=== PATIENT | female | born 1945 | race Caucasian/White ===

== ENCOUNTER 2019-04-04 06:48 | Emergency (ER) | payer OTHER ==
[~2019-04-04] VITALS: Ht 167.6 cm; Wt 59.0 kg
[2019-04-04] MEDS ORDERED: ZPAK PO (09:10)
[2019-04-04 09:17] VITALS: BP 174/69
[2019-04-05] MEDS ORDERED: PROAIR HFA8.5 GM INH (01:41)
[2019-04-05] MEDS ORDERED: PREDNISONE 20 M20 M1 PO (01:41)
[2019-04-05] MEDS ORDERED: NORVASC 2.5 MG2.5 M1 PO (19:43)
[2019-04-05] MEDS ORDERED: BUPROPION XL300 MG PO (19:44)
[2019-04-05] MEDS ORDERED: CARDURA4 MG PO (19:45)
[2019-04-05] MEDS ORDERED: LEXAPRO 10 MG T10 M1 PO (19:46)
[2019-04-05] MEDS ORDERED: HYDROCHLOROTHIA25 M2 PO (19:47)
[2019-04-05] MEDS ORDERED: IRBESARTAN300 MG PO (19:48)
[2019-04-05] MEDS ORDERED: BYSTOLIC10 MG PO (19:48)
[2019-04-05] MEDS ORDERED: CLINDAMYCIN HC300 MG PO (19:49)
== END 2019-04-04 09:24 | disposition home or self-care (01) ==
LOC: ER 06:48
DX: J06.9 Acute upper respiratory infection, unspecified (principal); R04.0 Epistaxis

== ENCOUNTER 2019-04-05 00:03 | Inpatient (IN) | payer OTHER ==
[2019-04-05] VITALS (7 sets, daily range): BP systolic 136–161; BP diastolic 74–91
[~2019-04-05] VITALS: Ht 165.1 cm; Wt 66.2 kg
[~2019-04-05 00:03] MED LIST: ZPAK PO
[2019-04-05 00:29] LABS: HEMOGLOBIN 12.2 gm/dL (12.0-15.0); MCH 34.5 pg (26.0-34.0); MCHC 33.8 g/dL (28.0-37.0); MCV 102.1 fL (80.0-100.0); PLATELET COUNT 305 thou/uL (150-400); RBC 3.53 mil/uL (4.20-5.00); RDW 14.1 % (10.5-14.5); WBC 6.6 thou/uL (4.0-11.0)
[2019-04-05 00:31] LABS: ANION GAP 10 mmol/L (7-16); BUN 7 mg/dL (7-18); CALCIUM 8.7 mg/dL (8.5-10.1); CHLORIDE 87 mmol/L (98-107); CO2 25 mmol/L (21-32); CREATININE 0.6 mg/dL (0.6-1.0); GLUCOSE 105 mg/dL (74-106); POTASSIUM 3.8 mmol/L (3.5-5.1); SODIUM 122 mmol/L (136-145)
[2019-04-05 00:39] LABS: TROPONIN-I <0.06 ng/mL (<0.06)
[2019-04-05 01:07] LABS: ATYPICAL LYMPHS 3 %; LARGE PLATELETS RARE
[2019-04-05] MEDS ORDERED: PREDNISONE 20 M20 M1 PO (01:41)
[2019-04-05] MEDS ORDERED: PROAIR HFA8.5 GM INH (01:41)
--- NOTE | 2019-04-05 03:35 | NUR ---
ASSUMED CARE OF PT FROM ER AT 0240HRS. PT IS ALERT BUT ONLY ORIENTED TO PERSON. FALL PRECAUTION IN PLACE. PT DID NOT ARRIVE WITH FAMILY AND THUS, HISTORY IS VERY LIMITED. ER WAS UNABLE TO GET CONTACT FAMILY. DUE TO COGNITION, PT IS UNABLE TO SIGN CONSENTS. ASSESSMENTS CHARTED. ORDERS RECEIVED AND STARTED. PT COMPLAINS OF SOME SOA BUT DENIES PAIN OR NAUSEA. VSS AND NO S/S OF ACUTE DISTRESS. WILL CONTINUE TO MONITOR.
[2019-04-05 03:36] LABS: FOLIC ACID 4.2 ng/mL (8.6-58.9); TSH 4.815 uIU/mL (0.358-3.740)
--- NOTE | 2019-04-05 16:20 | 2DMMODE ---
[facility] [address] [place] [address] 2 D/M-MODE ECHOCARDIOGRAM Name: ALEKS GUEVARA Room #: 354-P ADM IN M.R.#: [id number] Admission: 04/05/19 Attend Phys: Hayley Croft MD Discharge: Date of : 43 Report #: [id number] THIS REPORT FOR: cc: [facility] - Clinic physician unknown [facility] - Clinic physician unknown Oneil Deshpande MD ~ APPROVED REPORT Study performed: 04/05/2019 15:28:57 EXAM: Comprehensive 2D, Doppler, and color-flow Echocardiogram Patient Location: Bedside Room #: 354 Status: routine BSA: 1.73 HR: 65 bpm BP: 140/85 mmHg Rhythm: NSR Other Information Study Quality: Good Indications COPD Dyspnea Hypertension/HDD 2D Dimensions RVDd: 29.83 mm IVSd: 6.75 (7-11mm) LVOT Diam: 19.42 (18-24mm) LVDd: 46.73 mm PWd: 9.29 (7-11mm) Ascending Ao: 32.40 (22-36mm) LVDs: 33.34 (25-40mm) Aortic Root: 30.35 mm IVC: 26.00 mm Volumes Left Atrial Volume (Systole) Single Plane 4CH: 46.08 mL Single Plane 2CH: 36.68 mL LA ESV Index: 28.00 mL/m2 Aortic Valve AoV Peak Anup.: 1.74 m/s AO Peak Gr.: 12.16 mmHg LVOT Max P.32 mmHg LVOT Max V: 1.15 m/s [facility] [address] [place] [address] 2 D/M-MODE ECHOCARDIOGRAM Name: ALEKS GUEVARA Room #: 354-P [facility] IN ..#: [id number] Admission: 04/05/19 Attend Phys: Hayley Croft, Discharge: Date of : 43 Report #: [id number] SAMANTA Vmax: 1.96 cm2 Mitral Valve E/A Ratio: 2.1 MV Decel. Time: 179.38 ms MV E Max Anup.: 1.43 m/s MV A Anup.: 0.68 m/s MV PHT: 52.02 ms IVRT: 64.59 ms Pulmonary Valve PV Peak Anup.: 0.88 m/s PV Peak Gr.: 3.08 mmHg Pulmonary Vein P Vein S: 1.00 m/s P Vein A: 0.24 m/s P Vein D: 0.36 m/s P Vein A Dur.: 96.9 msec P Vein S/D Ratio: 2.78 Tricuspid Valve TR Peak Anup.: 3.12 m/s TR Peak Gr.: 38.88 mmHg PA Pressure: 49.00 mmHg Left Ventricle The left ventricle is normal size. There is normal LV segmental wall motion. There is normal left ventricular wall thickness. The left ventricular systolic function is normal. The left ventricular ejection fraction is within the normal range. LVEF is 60-65%. The left ventricular diastolic function is normal. Right Ventricle The right ventricle is normal size. The right ventricular systolic function is normal. Atria Left atrium is at the upper limits of normal. Right atrium is at the upper limits of normal. Aortic Valve The aortic valve is normal in structure. No aortic regurgitation is present. There is no aortic valvular stenosis. Mitral Valve The mitral valve is normal in structure. Trace to mild mitral regurgitation. No evidence of mitral valve stenosis. [facility] [address] [place] [address] 2 D/M-MODE ECHOCARDIOGRAM Name: ALEKS GUEVARA Room #: 354-P ADM IN M.R.#: [id number] Admission: 04/05/19 Attend Phys: Hayley Croft, Discharge: Date of : 43 Report #: [id number] Tricuspid Valve The tricuspid valve is normal in structure. There is mild tricuspid regurgitation. Estimated PAP 49 mmHg. There is moderate pulmonary hypertension. Pulmonic Valve The pulmonary valve is normal in structure. There is no pulmonic valvular regurgitation. Great Vessels The aortic root is normal in size. IVC is dilated and collapses >50% with inspiration. Pericardium There is no pericardial effusion. <Conclusion> The left ventricle is normal size. LVEF is 60-65%. Left atrium is at the upper limits of normal. The aortic valve is normal in structure. The mitral valve is normal in structure. Trace to mild mitral regurgitation. The tricuspid valve is normal in structure. There is mild tricuspid regurgitation. Estimated PAP 49 mmHg. There is moderate pulmonary hypertension. The pulmonary valve is normal in structure. There is no pericardial effusion. <ELECTRONICALLY SIGNED> By: Oneil Deshpande MD 04/05/19 1619 [id number] 18 Oneil Deshpande MD /INF
--- NOTE | 2019-04-05 16:33 | NUR ---
INITIAL ASSESSMENT: Received consult due to pt being admitted from a facility. KELLY reviewed chart and spoke with nursing and attending physician. Pt was admitted from [facility] due to hyponatremia/dyspnea. Pt with hx of COPD/Dementia. KELLY met with pt and dtr at bedside. Introduced role of SW. Pt is alert/orientated to self and place. Pt lives alone in an apt at [facility]. Prior to admission, pt was independent with ADLs. Pt does have a walker, but does not use it regularly. No steps to enter the apt and no steps inside. Pt's PCP is Dr. Elena Khan at [facility]. No hx of HH services or post-acute placement. Pt had private duty caregivers that come in twice a day to administer pt's medications. 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 Pt's family is supportive and involved in pt's care. Plan is for pt to return to her apt at [facility] when medically stable. KELLY discussed HH services if needed. KELLY is following to assist as needed with discharge planning.
[2019-04-05] MEDS ORDERED: NORVASC 2.5 MG2.5 M1 PO (19:43)
[2019-04-05] MEDS ORDERED: BUPROPION XL300 MG PO (19:44)
[2019-04-05] MEDS ORDERED: CARDURA4 MG PO (19:45)
[2019-04-05] MEDS ORDERED: LEXAPRO 10 MG T10 M1 PO (19:46)
[2019-04-05] MEDS ORDERED: HYDROCHLOROTHIA25 M2 PO (19:47)
[2019-04-05] MEDS ORDERED: BYSTOLIC10 MG PO (19:48)
[2019-04-05] MEDS ORDERED: IRBESARTAN300 MG PO (19:48)
[2019-04-05] MEDS ORDERED: CLINDAMYCIN HC300 MG PO (19:49)
[2019-04-05 20:02] LABS: URINE BILIRUBIN NEGATIVE (Negative); URINE BLOOD NEGATIVE (Negative); URINE CLARITY CLEAR; URINE COLOR YELLOW; URINE GLUCOSE-RANDOM* 1+ (Negative); URINE KETONES NEGATIVE (Negative); URINE LEUKOCYTES-REFLEX NEGATIVE (Negative); URINE NITRITE-REFLEX NEGATIVE (Negative); URINE PROTEIN (DIPSTICK) NEGATIVE (Negative); URINE SPECIFIC GRAVITY 1.015 (1.005-1.035); URINE UROBILINOGEN 0.2 E.U./dl (0.2-1.0)
[2019-04-05 20:10] LABS: AMP/METHAMP Negative (Negative); BARBITURATES Negative (Negative); BENZODIAZEPINES Negative (Negative); COCAINE Negative (Negative); METHADONE Negative (Negative); OPIATES Negative (Negative); PCP Negative (Negative)
--- NOTE | 2019-04-05 20:55 | NUR ---
PATIENT ORIENTED TO SELF AND DAUGHTERS AT BEDSIDE THIS AFTERNOON. PATIENT ABLE TO WALK TO BATHROOM WITH SBA. DAUGHTER INDICATED, PATIENT DRINKS A BOTTLE OF WINE EACH NIGHT. IT WAS NOTED PATIENT HAS TREMORS. PATIENT AND FAMILY PLEASANT AND COOPERATIVE WITH POC.
[2019-04-06 02:58] VITALS: BP 122/74
--- NOTE | 2019-04-06 05:51 | NUR ---
Pt. pleasantly confused. Daughter stated pt. drinks a bottle of wine on a daily basis and worried about withdrawal. ETIOLOGIST notified and CIWA protocol ordered. Low CIWA scores , no prn med given. Melatonin given to help her sleep. She slept fair during the night in between getting up to the commode. Tolerating room air well though she has a congested cough that bothers her. RT gave her breathing tx. Bed alarm on for safety. Daughter at bedside. Will continue to monitor.
[2019-04-06 06:49] LABS: ABSOLUTE NEUTROPHILS 3.6 thou/uL (1.4-8.2); BASOPHILS 0.1 % (0.0-2.0); HEMATOCRIT 33.8 % (37.0-47.0); HEMOGLOBIN 11.3 gm/dL (12.0-15.0); LYMPHOCYTES 14.5 % (24.0-44.0); MCH 34.5 pg (26.0-34.0); MCHC 33.5 g/dL (28.0-37.0); MCV 103.1 fL (80.0-100.0); MONOCYTES 9.4 % (1.0-8.0); PLATELET COUNT 262 thou/uL (150-400); RBC 3.28 mil/uL (4.20-5.00); WBC 4.7 thou/uL (4.0-11.0)
[2019-04-06 07:01] LABS: ALBUMIN 2.9 g/dL (3.4-5.0); CALCIUM 8.5 mg/dL (8.5-10.1); CREATININE 0.5 mg/dL (0.6-1.0); PHOSPHORUS 3.2 mg/dL (2.5-4.9); POTASSIUM 3.8 mmol/L (3.5-5.1); TOTAL BILIRUBIN 0.3 mg/dL (<0.1-1.0); TOTAL PROTEIN 6.8 g/dL (6.4-8.2)
[2019-04-06 07:45] VITALS: BP 145/80
--- NOTE | 2019-04-06 14:43 | NUR ---
SW reviewed chart and spoke with nursing and attending physician. Pt is progressing towards goals for discharge. Discharge back to [facility] is anticipated for tomorrow. KELLY met with pt and dtr at bedside to provide update. Both are aware and agreeable with discharge plan. SW offered to arrange HH services. Pt and dtr decline HH services. Pt's dtr states they will contact HH if needed. SW is following to assist as needed with discharge planning.
[2019-04-06 16:28] VITALS: BP 150/83
--- NOTE | 2019-04-06 18:48 | NUR ---
pt alert and oriented to self and place. pt follws commands. Call light in reach. Family visiting. Denies any needs at the moment. Care progressing.
[2019-04-06 19:30] VITALS: BP 145/114
[2019-04-07 03:14] VITALS: BP 156/83
--- NOTE | 2019-04-07 08:05 | NUR ---
PATIENT IS PROGRESSING IN HER CARE PLAN. VITAL SIGNS STABLE WITH PATIENT HAVING NO COMPLAINTS OF PAIN OR NAUSEA. PATIENT IS MOSTLY PLEASANTLY CONFUSED AND WAS VERY ANXIOUS EARLY IN SHIFT. CIWA PER PROTOCOL. PATIENT WAS ABLE TO AMBULATE TO THE BEDSIDE COMMODE MULTIPLE TIMES WITH ASSISTANCE INCIDENT FREE. FAMILY AT BEDSIDE.
[2019-04-07 11:07] VITALS: BP 175/105
--- NOTE | 2019-04-07 12:33 | EKG ---
[facility] [place] [address] ELECTROCARDIOGRAM REPORT Name: ALEKS GUEVARA Room #: 354- ADM IN M.R.#: [id number] Admission: 04/05/19 Attend Phys: Hayley Croft MD Discharge: Date of : 43 Report #: [id number] THIS REPORT FOR: cc: [facility] - Clinic physician unknown [facility] - Clinic physician unknown Keegan Estrada MD [facility] THIS REPORT FOR: //name// [facility] ED Test Date: 2019-04-05 Test Time: 00:24:10 Pat Name: ALEKS GUEVARA Department: Room: [facility] Gender: F Intelligence Agent: ko velasco rn : 1945 Requested By: Justo Zhu Order Number: [id number] MD: Keegan Estrada Measurements Intervals [place] Rate: 66 P: 95 AL: 134 QRS: 83 QRSD: 99 T: 64 QT: 408 QTc: 428 Interpretive Statements Sinus rhythm Atrial premature complex Nonspecific ST segment abnormality Baseline wander in lead(s) V1 No previous ECG available for comparison Electronically Signed On 04-05-2019 9:39:15 FUND CONTROLLER by Keegan Estrada [email or web address] <ELECTRONICALLY SIGNED> By: Keegan Estrada MD, FACC 04/05/19 0939 0024 0024 Keegan Estrada MD, [facility] /EPI
--- NOTE | 2019-04-07 12:36 | NUR ---
SW reviewed chart and spoke with nursing and attending physician. Pt is progressing towards goals for discharge. Discharge back to [facility] is anticipated in 1-2 days. SW is following to assist as needed with discharge planning.
[2019-04-07 16:19] VITALS: BP 148/89
--- NOTE | 2019-04-07 18:29 | NUR ---
PATIENT HAS HAD QUITE A PLEASANT DAY. UP AND AMBULATED WITH THERAPY. SHE HAS BEEN ENCOURAGED TO USE THE BATHROOM WHENEVER SHE HAS TO GO. SHE HAS BEEN WALKING ABOUT ROOM. NOTED TO BE CONFUSED AT TIMES. RESPIRATIONS ARE NON LABORED. PLEASANT WITH CARE. WILL CONT WITH PLAN OF CARE.
[2019-04-07 19:34] VITALS: BP 139/90
[2019-04-08 04:51] VITALS: BP 156/81
--- NOTE | 2019-04-08 06:30 | NUR ---
Tolerating room air well . Still coughing but feels like it has gotten better. Ambulated to bathroom with assist. Pt. is very forgetful. Bed alarm on. Daughter at bedside. Making progress towards care plan goals.
[2019-04-08 07:29] VITALS: BP 158/95
[2019-04-08 07:34] LABS: ABSOLUTE NEUTROPHILS 3.4 thou/uL (1.4-8.2); BASOPHILS 0.3 % (0.0-2.0); HEMATOCRIT 38.7 % (37.0-47.0); HEMOGLOBIN 12.9 gm/dL (12.0-15.0); MCHC 33.3 g/dL (28.0-37.0); MONOCYTES 11.1 % (1.0-8.0); PLATELET COUNT 263 thou/uL (150-400); POLYS 63.6 % (36.0-66.0); RBC 3.79 mil/uL (4.20-5.00); RDW 14.1 % (10.5-14.5); WBC 5.3 thou/uL (4.0-11.0)
[2019-04-08 08:09] LABS: CALCIUM 8.8 mg/dL (8.5-10.1); CREATININE 0.6 mg/dL (0.6-1.0); POTASSIUM 3.6 mmol/L (3.5-5.1); TOTAL BILIRUBIN 0.5 mg/dL (<0.1-1.0); TOTAL PROTEIN 7.2 g/dL (6.4-8.2)
--- NOTE | 2019-04-08 12:43 | NUR ---
pt awake and up in chair. Alert and oriented to person and place. Standby to bathroom. pt daughter's visiting. All questions answered. Denies any needs. Call light in reach, chair alarm on.Will continue to monitor.
[2019-04-08] MEDS ORDERED: PREDNISONE 10 M10 MG PO (12:50)
[2019-04-08] MEDS ORDERED: AZITHROMYCIN 2250 MG PO (12:50)
[2019-04-08] MEDS ORDERED: SPIRIVA18 MCG INH (12:51)
[2019-04-08] MEDS ORDERED: ADVAIR 100-501 EACH INH (12:51)
[2019-04-08 14:46] VITALS: BP 158/95
--- NOTE | 2019-04-08 15:07 | NUR ---
PT DISCHARGED, WENT DOWN BY WHEELCHAIR. DAUGHTER WITH PT. PT DISCHARGE INSTRUCTION, EDUCATION AND NEW MEDICATION INFORMATION GIVEN TO PT'S DAUGHTER.
--- NOTE | 2019-04-08 16:41 | NUR ---
DISCHARGE NOTE: KELLY reviewed chart and spoke with nursing and attending physician. Pt is medically stable for discharge home today. Orders written for HH services. KELLY spoke with pt's dtr, Jaci, to discuss discharge plan. Pt's family is in the process of moving pt into the memory care unit at [facility]. Family is working on moving her in within the next few days. Pt's dtr is agreeable with HH referral. HH to contact pt's dtr tomorrow to determine if she needs HH. No preference voiced of HH provider. SW faxed referral to [facility] and notified liaisonKenny of new referral. Info received. No additional SW needs identified at this time, but is available to assist should needs arise.
== END 2019-04-08 15:25 | disposition home health service (06) | DRG 189 ==
LOC: ER 00:03 → EROBS 01:59 → 3W 01:59 → ENTRNSPT 04-08 14:58 → EDTRNSPTSTS 04-08 15:11 → 3W 04-08 15:25
PROVIDERS: Emergency Medicine; Internal Medicine; Nurse Practitioner; ADMIT Internal Medicine
DX: J96.01 Acute respiratory failure with hypoxia (principal); J44.1 Chronic obstructive pulmonary disease with (acute) exacerbation; G93.40 Encephalopathy, unspecified; E87.1 Hypo-osmolality and hyponatremia; L03.116 Cellulitis of left lower limb; L03.115 Cellulitis of right lower limb; J06.9 Acute upper respiratory infection, unspecified; J40 Bronchitis, not specified as acute or chronic; I10 Essential (primary) hypertension; J44.9 Chronic obstructive pulmonary disease, unspecified; G30.9 Alzheimer's disease, unspecified; F02.80 Dementia in other diseases classified elsewhere, unspecified severity, without behavioral disturbance, psychotic disturbance, mood disturbance, and anxiety; E78.5 Hyperlipidemia, unspecified; R04.0 Epistaxis; I87.8 Other specified disorders of veins; I87.2 Venous insufficiency (chronic) (peripheral); F32.9 Major depressive disorder, single episode, unspecified; D53.9 Nutritional anemia, unspecified; E55.9 Vitamin D deficiency, unspecified; Z72.89 Other problems related to lifestyle; Z88.2 Allergy status to sulfonamides; Z90.710 Acquired absence of both cervix and uterus; Z82.49 Family history of ischemic heart disease and other diseases of the circulatory system; Z90.89 Acquired absence of other organs; Z80.3 Family history of malignant neoplasm of breast; Z87.891 Personal history of nicotine dependence; Z79.899 Other long term (current) drug therapy
CPT/HCPCS: 10879